=== PATIENT | male | born 1995 | race African-American/Black ===

== ENCOUNTER 2024-03-04 12:53 | Emergency (ER) | payer OTHER ==
[~2024-03-04] VITALS: Ht 172.7 cm; Wt 86.4 kg
[2024-03-04 12:55] VITALS: TEMP 97.9
[2024-03-04] MEDS ORDERED: Ibuprofen 400 MG TAB PO ONE (14:30)
[2024-03-04 15:23] VITALS: BP 135/76; PULSE 75
== END 2024-03-04 15:24 | disposition home or self-care (01) ==
LOC: COL.ER 12:53
DX: S20.211A Contusion of right front wall of thorax, initial encounter (principal); S80.212A Abrasion, left knee, initial encounter; S80.211A Abrasion, right knee, initial encounter; V29.498A Other motorcycle driver injured in collision with other motor vehicles in traffic accident, initial encounter; Y92.410 Unspecified street and highway as the place of occurrence of the external cause